=== PATIENT | female | born 1950 | race Caucasian/White ===

== ENCOUNTER 2025-06-03 21:03 | Emergency (ER) | payer MEDICARE ==
[~2025-06-03] VITALS: Ht 170.2 cm; Wt 75.3 kg
[2025-06-03 21:08] VITALS: BP 143/83; PULSE 66; TEMP 97.5; O2SAT 98
[2025-06-03 21:18] VITALS: RESP 16
[2025-06-03] MEDS ORDERED: CEFD300C21 PO (21:19)
--- NOTE | 2025-06-03 21:19 | Physician Documentation ---
History of Present Illness ~ Chief Complaint: Blood in Urine Stated Complaint: BLOOD IN URIN Time Seen by MD: 21:17 Source: patient Mode of Arrival: POV Exam Limitations: no limitations HPI Patient is traveling from [place] to [facility] and has noticed the last 2 voids some blood in her urine and dysuria. Patient has had UTIs in the past most recent UTI approximately 6 months ago. No fevers or flank back pain. Medication Reconciliation Allergies: Coded Allergies: No Known Allergies (Unverified , 06/03/25) Scheduled Cefdinir (Cefdinir), 1 CAP PO Q12H Past Medical History Past Medical History: No Pertinent History Review of Systems All Other Systems at this time: Reviewed and Negative Genitourinary: Reports: see HPI Physical Exam Vital Signs: RN Vital Signs have been reviewed: Yes, Temperature: 97.5, Source: Oral, Heart Rate: 66, Respiratory Rate: 16, BP: 143/83, Pulse Oximetry: 98, Weight: 75.300 Oxygen Flow Rate: 0 General Appearance: alert, WD/WN, no apparent distress Neck: normal inspection Respiratory: no respiratory distress Chest: no accessory muscle use Back: normal inspection, no CVA tenderness Progress Results/Orders Results/Orders Completed Orders - GELY MENJIVAR NP Cephalexin Capsule (Keflex Capsule) (06/03/25 21:20) Vital Signs 06/03/25 06/03/25 21:08 21:18 Temp 97.5 Pulse 66 Resp 16 16 B/P (MAP) 143/83 Pulse Ox 98 O2 Flow Rate 0 Medical Decision Making Findings Due to blood in dysuria some frequency urgency as well as recent travel on holding her urine differentials include pyelonephritis, cystitis, hemorrhagic cystitis. We will treat with antibiotic UA ordered we will follow up with primary care urgent care as needed Departure Time of Disposition: 21:18 Disposition: 01 HOME / SELF CARE / HOMELESS Impression: Primary Impression: UTI (urinary tract infection) Condition: Stable Discharge Instructions: Urinary Tract Infection, Adult Additional Instructions: Take antibiotics as prescribed stay well hydrated and monitor for any new or worsening symptoms follow up with primary care urgent care as needed Referrals: NO PRIMARY CARE PROVIDER (PCP) Prescriptions Cefdinir (Cefdinir) 300 Mg Capsule 1 CAP PO Q12H for 7 Days, #14 CAP Prov: GELY MENJIVAR NP 06/03/25 Education Educated: Patient, Family Educated regarding: diagnosis, treatment, need for follow up Signature Scribe Signature: No scribe Attestation: The note accurately reflects work and decisions made by me.Gely PORTILLO 06/03/25 21:19 GELY MENJIVAR NP Jun 03, 2025 21:19
== END 2025-06-03 21:41 | disposition home or self-care (01) ==
LOC: ER 21:05
DX: N39.0 Urinary tract infection, site not specified (principal)
CPT/HCPCS: 99283